=== PATIENT | female | born 1935 | race Caucasian/White ===

== ENCOUNTER 2021-02-23 12:11 | Inpatient (IN) ==
[2021-02-23] MEDS ORDERED: DIPH/TET/ACEL PERT BOOSTER VACCINE 0.5 ML VIAL IM ONE (12:45)
[2021-02-23] MEDS ORDERED: SODIUM CHLORIDE 0.9% 1,000 ML IV STA (12:45)
[2021-02-23 13:34] LABS: Basophils % 0.1 % (0.0-0.8); Eosinophils % 0.1 % (0.00-10.9); Hematocrit 38.3 VOL% (35.7-47.0); Hemoglobin 12.3 GM/DL (12.0-16.0); Immature Granulocytes % 0.9 %; Immature Granulocytes Absolute 0.13 #; Lymphocytes # 1.1 10*3/uL (1.4-4.0); Lymphocytes % 6.9 % (21.3-54.2); Mean Corpuscular HGB Conc 32.1 GM/DL (32-36); Mean Corpuscular Volume 89.1 FL (87-102); Mean Platelet Volume 10.1 FL (9.6-12.0); Monocytes % 5.9 % (1.7-12.7); Neutrophils % 86.1 % (38.7-73.9); Platelet Count 174 T/CUMM (130-400); Red Cell Distribution Width 14.7 % (9.3-17.3); White Blood Count 15.3 T/CUMM (4-12)
[2021-02-23 13:55] LABS: Albumin 3.2 G/DL (3.4-5.0); Calcium 9.4 MG/DL (8.5-10.1); Osmolality,Calculated 295.6 MOS/KG (273-304); Potassium 3.8 MMOL/L (3.5-5.1); Total Protein 6.9 G/DL (6.4-8.2)
[2021-02-23] MEDS ORDERED: DOCUSATE SODIUM 100 MG CAPSULE PO PRN (15:25)
[2021-02-23] MEDS ORDERED: ONDANSETRON 4 MG/2 ML VIAL IV PRN (15:25)
[2021-02-23] MEDS ORDERED: ACETAMINOPHEN 325 MG TABLET PO PRN (15:25)
[2021-02-23] MEDS ORDERED: GLUCAGON 1 MG VIAL IM PRN ×2 (15:25)
[2021-02-23] MEDS ORDERED: DEXTROSE 50% 25 GM/50 ML VIAL IV PRN (15:25)
[2021-02-23] MEDS ORDERED: hydrALAZINE 20 MG/1 ML VIAL IV PRN (15:27)
[2021-02-23] MEDS ORDERED: SODIUM CHLORIDE 0.45% 1,000 ML IV SCH (15:30)
[2021-02-23] MEDS ORDERED: DEXTROSE 10% 250 ML BAG IV PRN (15:43)
[2021-02-23] MEDS ORDERED: INSULIN REGULAR 100 UNIT/ML SUBCUT SCH (16:30)
[2021-02-23 17:30] LABS: Amorphous Crystals,Urine Occasional /HPF (Few); Bilirubin,Urine Negative (Negative); Blood, Urine Large mg/dL (Negative); Glucose,Urine (UA) 50 mg/dL (Negative); Hyaline Casts,Urine 14 /LPF (0-3); Ketones,Urine 5 mg/dL (Negative); Mucus,Urine Occasional /LPF (Occasional); Nitrite,Urine Negative (Negative); Protein,Urine >=500 MG/DL; RBC,Urine 119 /HPF (0-4); Squamous Epithelial Cell,Urine Occasional /HPF (0-10); Urine Appearance Slightly Hazy (Clear); Urine Color Yellow (Yellow); Urine Specific Gravity 1.015 (1.001-1.035); Urine Urobilinogen < 2.0 EU/DL (<2.0)
[2021-02-23] MEDS ORDERED: carvediloL 3.125 MG TABLET PO STA (17:45)
[2021-02-23] MEDS: INSULIN REGULAR 100 UNIT/ML SUBCUT SCH (17:56)
[2021-02-23] MEDS ORDERED: LEVOFLOXACIN INJ 500 MG/100 ML PREMIX IV ONE ×2 (18:00→21:00)
[2021-02-23] MEDS ORDERED: HEPARIN 5,000 UNIT/1 ML VIAL SUBCUT SCH (21:00)
[2021-02-23] MEDS: SODIUM CHLORIDE 0.45% 1,000 ML IV SCH (22:00)
[2021-02-23] MEDS: APIXABAN 2.5 MG TABLET PO SCH (22:00)
[2021-02-23] MEDS: hydrALAZINE 10 MG TABLET PO SCH (22:00)
[2021-02-24] MEDS: INSULIN REGULAR 100 UNIT/ML SUBCUT SCH ×5 (00:19→22:00)
[2021-02-24 05:32] LABS: Basophils % 0.1 % (0.0-0.8); Eosinophils % 0.1 % (0.00-10.9); Hematocrit 36.2 VOL% (35.7-47.0); Hemoglobin 11.5 GM/DL (12.0-16.0); Immature Granulocytes % 0.4 %; Immature Granulocytes Absolute 0.04 #; Lymphocytes # 1.7 10*3/uL (1.4-4.0); Lymphocytes % 14.7 % (21.3-54.2); Mean Corpuscular HGB Conc 31.8 GM/DL (32-36); Mean Corpuscular Volume 90.5 FL (87-102); Mean Platelet Volume 10.5 FL (9.6-12.0); Monocytes % 7.6 % (1.7-12.7); Neutrophils % 77.1 % (38.7-73.9); Platelet Count 148 T/CUMM (130-400); Red Cell Distribution Width 14.7 % (9.3-17.3); White Blood Count 11.4 T/CUMM (4-12)
[2021-02-24 06:22] LABS: Albumin 2.6 G/DL (3.4-5.0); Calcium 9.4 MG/DL (8.5-10.1); Osmolality,Calculated 286.1 MOS/KG (273-304); Potassium 3.7 MMOL/L (3.5-5.1); Total Protein 6.6 G/DL (6.4-8.2)
[2021-02-24] MEDS ORDERED: METOPROLOL SUCCINATE XL 50 MG TABLET PO SCH (09:00)
[2021-02-24] MEDS ORDERED: carvediloL 12.5 MG TABLET PO SCH (09:00)
[2021-02-24] MEDS: hydrALAZINE 10 MG TABLET PO SCH ×2 (10:03→21:00)
[2021-02-24] MEDS: APIXABAN 2.5 MG TABLET PO SCH (10:03)
[2021-02-24] MEDS: CHOLECALCIFEROL 1,000 UNIT TABLET PO SCH (10:03)
[2021-02-24] MEDS: PANTOPRAZOLE 40 MG TABLET PO SCH (10:03)
[2021-02-24] MEDS: ASPIRIN CHEW 81 MG TABLET PO SCH (10:03)
[2021-02-24] MEDS ORDERED: amLODIPine 5 MG TABLET PO SCH (10:30)
[2021-02-24 12:26] LABS: CKMB % 0.7 %
[2021-02-24] MEDS: SODIUM CHLORIDE 0.45% 1,000 ML IV SCH (16:22)
[2021-02-24 19:26] LABS: CKMB % 0.7 %
[2021-02-24] MEDS: LEVOFLOXACIN INJ 250 MG/50 ML PREMIX IV SCH (21:00)
[2021-02-25] MEDS: SODIUM CHLORIDE 0.45% 1,000 ML IV SCH ×3 (05:15→18:24)
[2021-02-25 05:36] LABS: Basophils % 0.2 % (0.0-0.8); Eosinophils # 0.1 10*3/uL (0.0-0.87); Eosinophils % 0.9 % (0.00-10.9); Hematocrit 33.2 VOL% (35.7-47.0); Hemoglobin 10.5 GM/DL (12.0-16.0); Immature Granulocytes % 0.4 %; Immature Granulocytes Absolute 0.04 #; Lymphocytes # 1.9 10*3/uL (1.4-4.0); Lymphocytes % 19.3 % (21.3-54.2); Mean Corpuscular HGB Conc 31.6 GM/DL (32-36); Mean Platelet Volume 10.1 FL (9.6-12.0); Monocytes % 10.2 % (1.7-12.7); Platelet Count 135 T/CUMM (130-400); Red Blood Count 3.69 MC/CUMM (3.8-5.5); Red Cell Distribution Width 14.6 % (9.3-17.3); White Blood Count 9.8 T/CUMM (4-12)
[2021-02-25 06:00] LABS: Osmolality,Calculated 283.7 MOS/KG (273-304)
[2021-02-25 06:05] LABS: Albumin 2.3 G/DL (3.4-5.0); Bilirubin,Total 0.6 MG/DL (0.20-1.00); Calcium 9.1 MG/DL (8.5-10.1); Osmolality,Calculated 285.5 MOS/KG (273-304); Total Protein 6.2 G/DL (6.4-8.2)
[2021-02-25] MEDS ORDERED: METOPROLOL SUCCINATE XL 50 MG TABLET PO SCH (09:00)
[2021-02-25] MEDS: PANTOPRAZOLE 40 MG TABLET PO SCH (09:52)
[2021-02-25] MEDS: hydrALAZINE 10 MG TABLET PO SCH ×2 (09:52→22:02)
[2021-02-25] MEDS: amLODIPine 10 MG TABLET PO SCH (09:52)
[2021-02-25] MEDS: ASPIRIN CHEW 81 MG TABLET PO SCH (09:52)
[2021-02-25] MEDS: CHOLECALCIFEROL 1,000 UNIT TABLET PO SCH (09:52)
[2021-02-25] MEDS: INSULIN REGULAR 100 UNIT/ML SUBCUT SCH ×3 (09:52→17:20)
[2021-02-25] MEDS: LEVOFLOXACIN INJ 250 MG/50 ML PREMIX IV SCH (22:03)
[2021-02-26 05:24] LABS: Basophils % 0.2 % (0.0-0.8); Eosinophils # 0.1 10*3/uL (0.0-0.87); Eosinophils % 0.7 % (0.00-10.9); Hematocrit 31.8 VOL% (35.7-47.0); Hemoglobin 10.2 GM/DL (12.0-16.0); Immature Granulocytes % 0.5 %; Immature Granulocytes Absolute 0.04 #; Lymphocytes # 1.8 10*3/uL (1.4-4.0); Lymphocytes % 21.2 % (21.3-54.2); Mean Corpuscular HGB Conc 32.1 GM/DL (32-36); Mean Corpuscular Volume 89.3 FL (87-102); Mean Platelet Volume 10.5 FL (9.6-12.0); Monocytes % 11.7 % (1.7-12.7); Neutrophils % 65.7 % (38.7-73.9); Platelet Count 139 T/CUMM (130-400); Red Blood Count 3.56 MC/CUMM (3.8-5.5); Red Cell Distribution Width 14.5 % (9.3-17.3); White Blood Count 8.6 T/CUMM (4-12)
[2021-02-26 05:58] LABS: Calcium 8.9 MG/DL (8.5-10.1); Potassium 3.8 MMOL/L (3.5-5.1)
[2021-02-26 06:06] LABS: Albumin 2.3 G/DL (3.4-5.0); Calcium 8.7 MG/DL (8.5-10.1); Osmolality,Calculated 284.5 MOS/KG (273-304); Potassium 3.8 MMOL/L (3.5-5.1); Total Protein 6.1 G/DL (6.4-8.2)
[2021-02-26] MEDS: INSULIN REGULAR 100 UNIT/ML SUBCUT SCH ×5 (06:29→22:04)
[2021-02-26] MEDS: CHOLECALCIFEROL 1,000 UNIT TABLET PO SCH (09:16)
[2021-02-26] MEDS: hydrALAZINE 10 MG TABLET PO SCH (09:16)
[2021-02-26] MEDS: ASPIRIN CHEW 81 MG TABLET PO SCH (09:16)
[2021-02-26] MEDS: PANTOPRAZOLE 40 MG TABLET PO SCH (09:16)
[2021-02-26] MEDS: amLODIPine 10 MG TABLET PO SCH (09:16)
[2021-02-26] MEDS: SODIUM CHLORIDE 0.45% 1,000 ML IV SCH ×3 (09:18→18:00)
[2021-02-26] MEDS: hydrALAZINE 25 MG TABLET PO SCH ×3 (10:54→21:59)
[2021-02-26] MEDS: LEVOFLOXACIN INJ 250 MG/50 ML PREMIX IV SCH (21:59)
[2021-02-27 05:25] LABS: Basophils % 0.1 % (0.0-0.8); Eosinophils # 0.1 10*3/uL (0.0-0.87); Eosinophils % 1.1 % (0.00-10.9); Hematocrit 33.5 VOL% (35.7-47.0); Hemoglobin 10.7 GM/DL (12.0-16.0); Immature Granulocytes % 0.7 %; Immature Granulocytes Absolute 0.05 #; Lymphocytes # 1.3 10*3/uL (1.4-4.0); Lymphocytes % 16.4 % (21.3-54.2); Mean Corpuscular HGB Conc 31.9 GM/DL (32-36); Mean Corpuscular Volume 89.6 FL (87-102); Mean Platelet Volume 10.5 FL (9.6-12.0); Monocytes % 12.2 % (1.7-12.7); Neutrophils % 69.5 % (38.7-73.9); Platelet Count 144 T/CUMM (130-400); Red Blood Count 3.74 MC/CUMM (3.8-5.5); Red Cell Distribution Width 14.2 % (9.3-17.3); White Blood Count 7.6 T/CUMM (4-12)
[2021-02-27 05:34] LABS: Calcium 8.8 MG/DL (8.5-10.1); Osmolality,Calculated 283.5 MOS/KG (273-304); Potassium 3.9 MMOL/L (3.5-5.1)
[2021-02-27 05:40] LABS: Albumin 2.1 G/DL (3.4-5.0); Bilirubin,Total 0.5 MG/DL (0.20-1.00); Calcium 9.2 MG/DL (8.5-10.1); Osmolality,Calculated 281.7 MOS/KG (273-304); Potassium 3.9 MMOL/L (3.5-5.1); Total Protein 6.3 G/DL (6.4-8.2)
[2021-02-27] MEDS: INSULIN REGULAR 100 UNIT/ML SUBCUT SCH ×3 (08:36→17:55)
[2021-02-27] MEDS: ASPIRIN CHEW 81 MG TABLET PO SCH (09:16)
[2021-02-27] MEDS: CHOLECALCIFEROL 1,000 UNIT TABLET PO SCH (09:16)
[2021-02-27] MEDS: PANTOPRAZOLE 40 MG TABLET PO SCH (09:17)
[2021-02-27] MEDS: amLODIPine 10 MG TABLET PO SCH (09:17)
[2021-02-27] MEDS ORDERED: DOCUSATE SODIUM 100 MG CAPSULE PO SCH (09:30)
[2021-02-27 16:36] VITALS: BP 178/64
[2021-02-27] MEDS ORDERED: POLYETHYLENE GLYCOL POWDER 17 GM PACK PO SCH (21:00)
== END 2021-02-27 20:28 | disposition swing bed (61) | DRG 558 ==
LOC: EDUNIT# → N.ED 12:11 → SUATTDRO 15:23 → N.EDINP 15:23 → N.TELES 17:46
PROVIDERS: ADMIT Hospitalist; ATTEND Hospitalist